=== PATIENT | female | born 1940 | race American Indian/Alaskan Native ===

== ENCOUNTER 2018-08-08 15:53 | Observation (INO) | payer MEDICARE, MEDICAID ==
[2018-08-08 15:53] VITALS: BMI 28.3
[2018-08-08 16:56] LABS: BASO % 0.7 % (0.0-2.0); EOS # 0.1 K/uL (0.0-0.7); EOS % 2.9 % (0.0-4.0); HEMOGLOBIN 12.4 g/dL (11.0-16.0); LYMPH # 1.7 K/uL (1.0-4.3); LYMPH % 32.4 % (20.0-40.0); MEAN CELL VOLUME 95.3 fL (81.0-99.0); MEAN CORPUSCULAR HEMOGLOBIN 32.1 pg (27.0-31.0); MEAN CORPUSCULAR HGB CONC 33.7 g/dL (33.0-37.0); MEAN PLATELET VOLUME 7.5 fL (7.2-11.7); MONO # 0.4 K/uL (0.0-0.8); MONO % 7.9 % (0.0-10.0); NEUT # 2.9 K/uL (1.8-7.0); NEUT % 56.1 % (50.0-75.0); NRBC % 0.1 % (0.0-2.0); RBC 3.86 Mil/uL (3.80-5.20); RED CELL DISTRIBUTION WIDTH 13.4 % (11.5-14.5); WHITE BLOOD COUNT 5.2 K/uL (4.8-10.8)
--- NOTE | 2018-08-08 17:09 | C.PDOC ---
History Of Present Illness 77-year-old female, is sent to the emergency department with complaints of chest pain. Patient has a Hx of cardiac disease, and was catheterized in May and June. Patient states he was watching television at 07:00 today and developed a sharp mid sternal chest pain. Patient notes associated diaphoresis that lasted a few minutes and resolved. Patient was seen in the office by Dr Rincon and sent to the ED for cardiac observation for new onset angina. Time Seen by Provider: 08/08/18 16:26 Chief Complaint (Nursing): Chest Pain History Per: Patient History/Exam Limitations: no limitations Current Symptoms Are (Timing): Still Present Severity: Moderate Past Medical History Reviewed: Historical Data, Nursing Documentation, Vital Signs Vital Signs: Last Vital Signs Temp 98.8 F 08/08/18 16:20 Pulse 66 08/08/18 16:20 Resp 20 08/08/18 16:20 BP 201/79 H 08/08/18 16:20 Pulse Ox 95 08/08/18 16:20 - Medical History PMH: Asthma, CAD, Diabetes, HTN, Hypercholesterolemia, Hyperthyroidism, Hypothyroidism, Pneumonia Surgical History: Coronary Stent Denies: Pacemaker - [facility] Procedures BATHING/SHOWERING TECHNIQUES TREATMENT (12/16/17) DRESSING TECHNIQUES TREATMENT (12/16/17) GAIT TRAINING/FUNCTIONAL AMBULATION TREATMENT (12/16/17) GROOMING/PERSONAL HYGIENE TREATMENT (12/16/17) INJECT/INFUSE ELECTROLYT (08/05/15) INJECT/INFUSE NEC (08/05/15) NEBULIZER THERAPY (02/27/15) THERAPEUTIC EXERCISE TREATMENT OF MUSCULOSK WHOLE (12/16/17) VITAL CAPACITY DETERMIN (02/27/15) Family History: States: No Known Family Hx - Social History Hx Tobacco Use: No Hx Alcohol Use: No Hx Substance Use: No - Immunization History Hx Tetanus Toxoid Vaccination: No Hx Influenza Vaccination: No Hx Pneumococcal Vaccination: No Review Of Systems Constitutional: Positive for: Sweats Cardiovascular: Positive for: Chest Pain. Negative for: Edema, Light Headedness Respiratory: Negative for: Cough Gastrointestinal: Negative for: Nausea, Vomiting, Abdominal Pain Musculoskeletal: Negative for: Arm Pain Physical Exam - Physical Exam Appears: Non-toxic, No Acute Distress Skin: Warm, Dry, No Rash Head: Atraumatic, Normacephalic Eye(s): bilateral: Normal Inspection Nose: Normal Oral Mucosa: Moist Lips: Normal Appearing Neck: Normal ROM Chest: Symmetrical Cardiovascular: Rhythm Regular, No Murmur Respiratory: Normal Breath Sounds, No Accessory Muscle Use Gastrointestinal/Abdominal: Soft, No Tenderness Extremity: Normal ROM, No Deformity Neurological/Psych: Oriented x3, Normal Speech ED Course And Treatment - Laboratory Results Result Diagrams: 08/08/18 16:45 08/08/18 17:05 Lab Interpretation: No Acute Changes ECG: Interpreted By Me ECG Rhythm: Sinus Rhythm (with LVH) ECG Interpretation: No Acute Changes O2 Sat by Pulse Oximetry: 95 Pulse Ox Interpretation: Normal (RA) - Radiology CXR: Interpreted by Me CXR Interpretation: Yes: No Acute Disease - Physician Consult Information Time Consulting Physician Contacted: 17:47 Physician Contacted: Roberto Cao Outcome Of Conversation: Patient to be kept on Tele for cardiac observation Medical Decision Making Medical Decision Making: Plan: * Bloodwork * EKG * Chest X-Ray * Reassess and Disposition Disposition - Disposition Disposition: HOSPITALIZED Disposition Time: 17:48 Condition: STABLE - POA Present On Arrival: None - Clinical Impression Clinical Impression: Chest pain - Scribe Statement The provider has reviewed the documentation as recorded by the Scribe (Oleksandr Young) Provider Attestation: All medical record entries made by the Scribe were at my direction and personally dictated by me. I have reviewed the chart and agree that the record accurately reflects my personal performance of the history, physical exam, medical decision making, and the department course for this patient. I have also personally directed, reviewed, and agree with the discharge instructions and disposition.
--- NOTE | 2018-08-08 17:10 | RAD ---
Date of service: 08/08/2018 PROCEDURE: CHEST RADIOGRAPH, 1 VIEW HISTORY: chest pain COMPARISON: Chest radiograph dated 10/13/2014. FINDINGS: LUNGS: Clear. PLEURA: No pneumothorax or pleural fluid seen. CARDIOVASCULAR: Atherosclerotic aortic calcifications. Cardiomediastinal silhouette stably enlarged. OSSEOUS STRUCTURES: Unchanged. VISUALIZED UPPER ABDOMEN: Normal. OTHER FINDINGS: None. IMPRESSION: No active disease.
[2018-08-08 17:24] LABS: ALB/GLOB RATIO 1.2 (1.0-2.1); ALBUMIN 4.1 g/dL (3.5-5.0); ALT/SGPT 25 U/L (9-52); AST/SGOT 23 U/L (14-36); BLOOD UREA NITROGEN 14 mg/dL (7-17); CALCIUM 9.4 mg/dl (8.6-10.4); GFR NON-AFRICAN AMERICAN 53
[2018-08-08 19:53] VITALS: RESP 20
[2018-08-08] MEDS ORDERED: Glucagon Recombinant 1 mg Inj IM PRN (20:32)
[2018-08-08] MEDS ORDERED: Dextrose 50% SYRINGE Inj (50 ml) IV PRN (20:32)
--- NOTE | 2018-08-08 21:15 | CP.PCM.HP ---
<Emperatriz Ackerman P - Last Filed: 08/08/18 22:00> History of Present Illness - History of Present Illness History of Present Illness: H&P for Hospitalist Service. CC: Chest pain HPI: Patient is a 77 yo F with PMHx of CAD, HTN, DM, Hypercholesterolemia, previous [place] (1979), previous CVA (1994), and cardiac catheterization with stent placement (05/2018 & 06/2018) who presents to ED for episodic chest pain that began today. Pain is described as sharp, non-radiating, and is located in the L chest. The first episode occurred when getting up from bed at 7am and lasted a few seconds. 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 States this has never happened before. Both episodes are associated with diaphoresis, palpitations, and nausea. Patient denies shortness of breath, cough, vomiting, radiation to neck or arm, dizziness, lightheadedness, orthopnea, abdominal pain, recent travel and recent illness. PMHx: CAD, HTN, DM, Hypercholesterolemia, hypothyroidism, asthma, previous [place] (1979), previous CVA (1994), and cardiac catheterization with stent placement (05/2018 & 06/2018) PSHx: R breast cyst removal (2002), (1979), hemorrhoidectomy Meds: Clopedogrel 75mg daily, ASA 81 mg daily, Metoprolol Tartrate 25 BID, Ranexa 500mg BID, levothyroxine 125 mcg daily, Simvastatin 10mg HS, Losartan 50mg Daily, Januvia Allergies: NKDA Social: Denies tobacco, alcohol, drugs. Family Hx: father-CVA, at age 48; brother- at age 11, cardiomyopathy; mother-colon cancer Proxy: Son- Kendall Hernandez [phone] Code Status: Full Code PMD: Dr. Omega Baig; Cardio: Dr. Rincon Present on Admission - Present on Admission Any Indicators Present on Admission: No Review of Systems - Constitutional Constitutional: absent: Chills, Fever, Headache, Night Sweats, Weakness - EENT Eyes: absent: Blurred Vision - Cardiovascular Cardiovascular: Chest Pain, Diaphoresis, Palpitations, Pedal Edema. absent: Dyspnea on Exertion, Lightheadedness - Respiratory Respiratory: absent: Cough, Dyspnea, Dyspnea on Exertion - Gastrointestinal Gastrointestinal: Constipation, Nausea. absent: Abdominal Pain, Diarrhea, Vomiting - Musculoskeletal Musculoskeletal: absent: Arthralgias, Joint Swelling, Numbness, Stiffness - Neurological Neurological: absent: Abnormal Speech, Confusion, Dizziness, Numbness, Headaches, Loss of Vision, Tingling Past Patient History - Infectious Disease Hx of Infectious Diseases: None - Tetanus Immunizations Tetanus Immunization: Unknown - Past Social History Smoking Status: Never Smoked - CARDIAC Hx Hypercholesterolemia: Yes Hx Hypertension: Yes Hx Pacemaker: No - PULMONARY Hx Asthma: Yes Hx Pneumonia: Yes - NEUROLOGICAL Hx Paralysis: No - HEENT Hx HEENT Problems: No - RENAL Hx Dialysis: No - ENDOCRINE/METABOLIC Hx Hyperthyroidism: Yes Hx Hypothyroidism: Yes - HEMATOLOGICAL/ONCOLOGICAL Hx Blood Transfusions: No - INTEGUMENTARY Hx Dermatological Problems: Yes Other/Comment: bilateral leg edema +2 more to right than left - MUSCULOSKELETAL/RHEUMATOLOGICAL Hx Musculoskeletal Disorders: No - GASTROINTESTINAL Hx Gastrointestinal Disorders: No - GENITOURINARY/GYNECOLOGICAL Hx Genitourinary Disorders: No Hx Reproductive Disorders: No - PSYCHIATRIC Hx Substance Use: No - SURGICAL HISTORY Hx Coronary Stent: Yes - ANESTHESIA Hx Anesthesia Reactions: No Hx Malignant Hyperthermia: No Meds Allergies/Adverse Reactions: Allergies Allergy/AdvReac Type Severity Reaction Status Date / Time No Known Allergies Allergy Verified 12/14/17 16:47 Physical Exam - Constitutional Appears: Non-toxic, No Acute Distress - Head Exam Head Exam: ATRAUMATIC, NORMOCEPHALIC - Eye Exam Eye Exam: EOMI, PERRL - ENT Exam ENT Exam: Mucous Membranes Moist - Neck Exam Neck exam: Positive for: Full Rom, Normal Inspection - Respiratory Exam Respiratory Exam: Clear to Auscultation Bilateral. absent: Rales, Rhonchi, Wheezes - Cardiovascular Exam Cardiovascular Exam: REGULAR RHYTHM, +S1, +S2 - GI/Abdominal Exam GI & Abdominal Exam: Normal Bowel Sounds, Soft. absent: Guarding, Rebound, Tenderness - Extremities Exam Extremities exam: Positive for: full ROM, normal capillary refill, pedal edema (trace bilaterally), pedal pulses present. Negative for: calf tenderness - Neurological Exam Neurological exam: Alert, CN II-XII Intact, Oriented x3 - Psychiatric Exam Psychiatric exam: Normal Affect, Normal Mood - Skin Skin Exam: Dry, Intact, Normal Color, Warm Results - Vital Signs Recent Vital Signs: Last Vital Signs Temp 98.1 F 08/08/18 19:40 Pulse 63 08/08/18 19:40 Resp 20 08/08/18 19:40 BP 171/77 H 08/08/18 19:40 Pulse Ox 97 08/08/18 19:40 - Labs Result Diagrams: 08/08/18 16:45 08/08/18 17:05 Labs: Laboratory Results - last 24 hr 08/08/18 08/08/18 16:45 17:05 WBC 5.2 RBC 3.86 Hgb 12.4 Hct 36.7 MCV 95.3 MCH 32.1 H MCHC 33.7 RDW 13.4 Plt Count 246 MPV 7.5 Neut % (Auto) 56.1 Lymph % (Auto) 32.4 [place] % (Auto) 7.9 Eos % (Auto) 2.9 Baso % (Auto) 0.7 Neut # (Auto) 2.9 Lymph # (Auto) 1.7 [place] # (Auto) 0.4 Eos # (Auto) 0.1 Baso # (Auto) 0.0 Sodium 140 Potassium 3.8 Chloride 104 Carbon Dioxide 24 Anion Gap 16 BUN 14 Creatinine 1.0 Est GFR ( Amer) > 60 Est GFR (Non-Af Amer) 53 Random Glucose 135 H Calcium 9.4 Total Bilirubin 0.6 AST 23 ALT 25 Alkaline Phosphatase 69 Troponin I < 0.0120 Total Protein 7.5 Albumin 4.1 Globulin 3.4 Albumin/Globulin Ratio 1.2 Assessment & Plan - Assessment and Plan (Free Text) Plan: 77 yo F with PMHx of CAD, HTN, DM, Hypercholesterolemia, previous [place] (1979), previous CVA (1994), and cardiac catheterization with stent placement (05/2018 & 06/2018) admitted for chest pain. Chest pain r/o ACS -Risk factors: HTN, DM, Hypercholesterolemia -Troponin x1 neg, follow up repeat -EKG on admission NSR at 63 bpm -F/u repeat EKG -CXR: No active dz -ASA 81mg -Continue Ranexa 500mg BID HTN -Metoprolol Tartrate 25mg BID -Losartan 50mg daily DM -Regular ISS -Glucose checks ACHS -Hypoglycemia protocol -Hgb A1c Hypercholesterolemia -Crestor 5 PO HS -Lipid panel Hx CAD with cardiac stent -Continue home med Plavix 75mg daily Hypothyroidism -Levothyroxine 125 mcg daily -TSH, Free T4 Prophylaxis -Pepcid 40mg daily -Lovenox 40mg daily -SCDs -Heart Healthy Diet <Roberto Cao - Last Filed: 08/09/18 10:28> Results - Vital Signs Recent Vital Signs: Last Vital Signs Temp 97.9 F 08/09/18 08:28 Pulse 57 L 08/09/18 08:28 Resp 20 08/09/18 08:28 BP 152/79 H 08/09/18 08:28 Pulse Ox 98 08/09/18 08:28 - Labs Result Diagrams: 08/09/18 06:23 08/09/18 06:23 Labs: Laboratory Results - last 24 hr 08/08/18 08/08/18 08/08/18 16:45 17:05 21:14 WBC 5.2 RBC 3.86 Hgb 12.4 Hct 36.7 MCV 95.3 MCH 32.1 H MCHC 33.7 RDW 13.4 Plt Count 246 MPV 7.5 Neut % (Auto) 56.1 Lymph % (Auto) 32.4 [place] % (Auto) 7.9 Eos % (Auto) 2.9 Baso % (Auto) 0.7 Neut # (Auto) 2.9 Lymph # (Auto) 1.7 [place] # (Auto) 0.4 Eos # (Auto) 0.1 Baso # (Auto) 0.0 Sodium 140 Potassium 3.8 Chloride 104 Carbon Dioxide 24 Anion Gap 16 BUN 14 Creatinine 1.0 Est GFR ( Amer) > 60 Est GFR (Non-Af Amer) 53 POC Glucose (mg/dL) 156 H Random Glucose 135 H Hemoglobin A1c Calcium 9.4 Phosphorus Magnesium Total Bilirubin 0.6 AST 23 ALT 25 Alkaline Phosphatase 69 Total Creatine Kinase CK-MB (Mass) Troponin I < 0.0120 Total Protein 7.5 Albumin 4.1 Globulin 3.4 Albumin/Globulin Ratio 1.2 Triglycerides Cholesterol LDL Cholesterol Direct HDL Cholesterol Free T4 TSH 3rd Generation 08/08/18 08/09/18 08/09/18 23:27 06:23 06:23 WBC 4.3 L RBC 3.50 L Hgb 11.5 Hct 33.0 L MCV 94.4 MCH 32.9 H MCHC 34.9 RDW 13.1 Plt Count 221 MPV 7.0 L Neut % (Auto) 57.6 Lymph % (Auto) 28.4 [place] % (Auto) 9.5 Eos % (Auto) 4.1 H Baso % (Auto) 0.4 Neut # (Auto) 2.5 Lymph # (Auto) 1.2 [place] # (Auto) 0.4 Eos # (Auto) 0.2 Baso # (Auto) 0.0 Sodium 140 Potassium 4.2 Chloride 107 Carbon Dioxide 24 Anion Gap 13 BUN 16 Creatinine 1.0 Est GFR ( Amer) > 60 Est GFR (Non-Af Amer) 53 POC Glucose (mg/dL) Random Glucose 148 H Hemoglobin A1c Calcium 9.4 Phosphorus 4.1 Magnesium 1.7 Total Bilirubin 0.5 AST 24 ALT 28 Alkaline Phosphatase 68 Total Creatine Kinase 86 81 CK-MB (Mass) 0.39 0.34 Troponin I < 0.0120 < 0.0120 Total Protein 6.9 Albumin 3.8 Globulin 3.1 Albumin/Globulin Ratio 1.2 Triglycerides 137 Cholesterol 205 H LDL Cholesterol Direct 104 HDL Cholesterol 48 Free T4 TSH 3rd Generation < 0.02 L 08/09/18 08/09/18 08/09/18 06:23 06:23 06:33 WBC RBC Hgb Hct MCV MCH MCHC RDW Plt Count MPV Neut % (Auto) Lymph % (Auto) [place] % (Auto) Eos % (Auto) Baso % (Auto) Neut # (Auto) Lymph # (Auto) [place] # (Auto) Eos # (Auto) Baso # (Auto) Sodium Potassium Chloride Carbon Dioxide Anion Gap BUN Creatinine Est GFR ( Amer) Est GFR (Non-Af Amer) POC Glucose (mg/dL) 143 H Random Glucose Hemoglobin A1c 6.7 H Calcium Phosphorus Magnesium Total Bilirubin AST ALT Alkaline Phosphatase Total Creatine Kinase CK-MB (Mass) Troponin I Total Protein Albumin Globulin Albumin/Globulin Ratio Triglycerides Cholesterol LDL Cholesterol Direct HDL Cholesterol Free T4 1.42 TSH 3rd Generation Attending/Attestation - Attestation I have personally seen and examined this patient.: Yes I have fully participated in the care of the patient.: Yes I have reviewed all pertinent clinical information: Yes Notes (Text): Seen and examined by me with the resident in the ER. History taken from the patient. patinet came for chest pain and diaphoresis. High risk for Acute CAD. sitting comfortable,no pain,lungs clear, regular Rhythm EKG without ischemic changes,michael troponin ok admit to [facility] for observation,3 sets troponin,cardiology consult DR Rincon Start her home meds Renexa,asprin,plvix,cozaar,crestor and metoprolol I agree with the resident's documentation
[2018-08-08] MEDS: (Novolin R) Insulin Human Regular 100 units/ml vial SC SCH (21:42)
--- NOTE | 2018-08-08 22:12 | CP.PCM.CON ---
History of Present Illness - History of Present Illness History of Present Illness: 77 F with hx of CAD and stents presented to ER with episode of chest pain Trop x 1 negative Stress test in am Past Patient History - Infectious Disease Hx of Infectious Diseases: None - Tetanus Immunizations Tetanus Immunization: Unknown - Past Social History Smoking Status: Never Smoked - CARDIAC Hx Hypercholesterolemia: Yes Hx Hypertension: Yes Hx Pacemaker: No - PULMONARY Hx Asthma: Yes Hx Pneumonia: Yes - NEUROLOGICAL Hx Paralysis: No - HEENT Hx HEENT Problems: No - RENAL Hx Dialysis: No - ENDOCRINE/METABOLIC Hx Hyperthyroidism: Yes Hx Hypothyroidism: Yes - HEMATOLOGICAL/ONCOLOGICAL Hx Blood Transfusions: No - INTEGUMENTARY Hx Dermatological Problems: Yes Other/Comment: bilateral leg edema +2 more to right than left - MUSCULOSKELETAL/RHEUMATOLOGICAL Hx Musculoskeletal Disorders: No - GASTROINTESTINAL Hx Gastrointestinal Disorders: No - GENITOURINARY/GYNECOLOGICAL Hx Genitourinary Disorders: No Hx Reproductive Disorders: No - PSYCHIATRIC Hx Substance Use: No - SURGICAL HISTORY Hx Coronary Stent: Yes - ANESTHESIA Hx Anesthesia Reactions: No Hx Malignant Hyperthermia: No Meds Allergies/Adverse Reactions: Allergies Allergy/AdvReac Type Severity Reaction Status Date / Time No Known Allergies Allergy Verified 12/14/17 16:47 - Medications Medications: Current Medications Aspirin (Aspirin Chewable) 81 mg PO DAILY [facility] Clopidogrel Bisulfate (Plavix) 75 mg PO DAILY [facility] Dextrose (Dextrose 50% Inj) 0 ml IV STAT PRN; Protocol PRN Reason: Hypoglycemia Protocol Dextrose (Glutose 15) 0 gm PO ONCE PRN; Protocol PRN Reason: Hypoglycemia Protocol Enoxaparin Sodium (Lovenox) 40 mg SC DAILY [facility] Famotidine (Pepcid) 40 mg PO DAILY [facility] Glucagon (Glucagen Diagnostic Kit) 0 mg IM STAT PRN; Protocol PRN Reason: Hypoglycemia Protocol Dextrose (Dextrose 5% In Water 1000 Ml) 1,000 mls @ 0 mls/hr IV .Q0M PRN; Protocol PRN Reason: Hypoglycemia Protocol Insulin Human Regular (Novolin R) 0 unit SC ACHS [facility]; Protocol Last Admin: 08/08/18 21:42 Dose: Not Given Levothyroxine Sodium (Synthroid) 125 mcg PO DAILY@0630 [facility] Losartan Potassium (Cozaar) 50 mg PO DAILY [facility] Metoprolol Tartrate (Lopressor) 25 mg PO BID [facility] Ranolazine (Ranexa) 500 mg PO BID [facility] Rosuvastatin Calcium (Crestor) 5 mg PO HS [facility] Last Admin: 08/08/18 21:51 Dose: 5 mg Results - Vital Signs Recent Vital Signs: Last Vital Signs Temp 98.1 F 08/08/18 19:40 Pulse 63 08/08/18 19:40 Resp 20 08/08/18 19:40 BP 171/77 H 08/08/18 19:40 Pulse Ox 97 08/08/18 19:40 - Labs Result Diagrams: 08/08/18 16:45 08/08/18 17:05 Labs: Laboratory Results - last 24 hr 08/08/18 08/08/18 08/08/18 16:45 17:05 21:14 WBC 5.2 RBC 3.86 Hgb 12.4 Hct 36.7 MCV 95.3 MCH 32.1 H MCHC 33.7 RDW 13.4 Plt Count 246 MPV 7.5 Neut % (Auto) 56.1 Lymph % (Auto) 32.4 [place] % (Auto) 7.9 Eos % (Auto) 2.9 Baso % (Auto) 0.7 Neut # (Auto) 2.9 Lymph # (Auto) 1.7 [place] # (Auto) 0.4 Eos # (Auto) 0.1 Baso # (Auto) 0.0 Sodium 140 Potassium 3.8 Chloride 104 Carbon Dioxide 24 Anion Gap 16 BUN 14 Creatinine 1.0 Est GFR ( Amer) > 60 Est GFR (Non-Af Amer) 53 POC Glucose (mg/dL) 156 H Random Glucose 135 H Calcium 9.4 Total Bilirubin 0.6 AST 23 ALT 25 Alkaline Phosphatase 69 Troponin I < 0.0120 Total Protein 7.5 Albumin 4.1 Globulin 3.4 Albumin/Globulin Ratio 1.2
[2018-08-09] LABS: CK-MB 0.39 ng/mL (0.0-3.38)
[2018-08-09] MEDS: Levothyroxine 125 MCG TAB PO SCH (06:04)
[2018-08-09 06:30] LABS: BASO % 0.4 % (0.0-2.0); EOS # 0.2 K/uL (0.0-0.7); EOS % 4.1 % (0.0-4.0); HEMOGLOBIN 11.5 g/dL (11.0-16.0); LYMPH # 1.2 K/uL (1.0-4.3); LYMPH % 28.4 % (20.0-40.0); MEAN CELL VOLUME 94.4 fL (81.0-99.0); MEAN CORPUSCULAR HEMOGLOBIN 32.9 pg (27.0-31.0); MEAN CORPUSCULAR HGB CONC 34.9 g/dL (33.0-37.0); MONO # 0.4 K/uL (0.0-0.8); MONO % 9.5 % (0.0-10.0); NEUT # 2.5 K/uL (1.8-7.0); NEUT % 57.6 % (50.0-75.0); RBC 3.5 Mil/uL (3.80-5.20); RED CELL DISTRIBUTION WIDTH 13.1 % (11.5-14.5); WHITE BLOOD COUNT 4.3 K/uL (4.8-10.8)
[2018-08-09 06:47] LABS: ALB/GLOB RATIO 1.2 (1.0-2.1); ALBUMIN 3.8 g/dL (3.5-5.0); ALT/SGPT 28 U/L (9-52); AST/SGOT 24 U/L (14-36); BLOOD UREA NITROGEN 16 mg/dL (7-17); CALCIUM 9.4 mg/dl (8.6-10.4); GFR NON-AFRICAN AMERICAN 53; HDL CHOLESTEROL 48 mg/dL (30-70)
[2018-08-09 06:58] LABS: CK-MB 0.34 ng/mL (0.0-3.38); LDL CHOLESTEROL 104 mg/dL (0-129)
[2018-08-09] MEDS: (Novolin R) Insulin Human Regular 100 units/ml vial SC SCH ×4 (07:34→21:21)
[2018-08-09] MEDS ORDERED: Caffeine Citrated **INJ** 20 MG/ML IV ONE (07:36)
[2018-08-09] MEDS: Enoxaparin 40 mg Syringe SC SCH ×2 (09:36→10:33)
[2018-08-09] MEDS: Ranolazine 500 mg Extended Release Tablets PO SCH ×3 (09:37→17:48)
--- NOTE | 2018-08-09 17:15 | CP.PCM.PN ---
<Emperatriz Ackerman P - Last Filed: 08/09/18 17:46> Subjective - Date & Time of Evaluation Date of Evaluation: 08/09/18 Time of Evaluation: 07:00 - Subjective Subjective: PGY-[address] Cao. Patient was seen and evaluated at bedside. Patient states she awoke feeling well, however started to feel lightheaded following the nuclear stress test. Denies chest pain, shortness of breath, diaphoresis, fever and chills. Objective - Vital Signs/Intake and Output Vital Signs (last 24 hours): Temp Pulse Resp BP Pulse Ox 97.9 F 57 L 20 150/79 98 08/09/18 08:28 08/09/18 08:28 08/09/18 08:28 08/09/18 10:31 08/09/18 08:28 Intake and Output: 08/09/18 08/09/18 06:59 18:59 Intake Total 480 Balance 480 - Medications Medications: Current Medications Aspirin (Aspirin Chewable) 81 mg PO DAILY [facility] Last Admin: 08/09/18 10:32 Dose: 81 mg Clopidogrel Bisulfate (Plavix) 75 mg PO DAILY [facility] Last Admin: 08/09/18 10:30 Dose: 75 mg Dextrose (Dextrose 50% Inj) 0 ml IV STAT PRN; Protocol PRN Reason: Hypoglycemia Protocol Dextrose (Glutose 15) 0 gm PO ONCE PRN; Protocol PRN Reason: Hypoglycemia Protocol Enoxaparin Sodium (Lovenox) 40 mg SC DAILY [facility] Last Admin: 08/09/18 10:33 Dose: 40 mg Famotidine (Pepcid) 20 mg PO DAILY [facility] Last Admin: 08/09/18 10:31 Dose: 20 mg Glucagon (Glucagen Diagnostic Kit) 0 mg IM STAT PRN; Protocol PRN Reason: Hypoglycemia Protocol Dextrose (Dextrose 5% In Water 1000 Ml) 1,000 mls @ 0 mls/hr IV .Q0M PRN; Protocol PRN Reason: Hypoglycemia Protocol Insulin Human Regular (Novolin R) 0 unit SC [facility]; Protocol Last Admin: 08/09/18 12:53 Dose: 3 u Levothyroxine Sodium (Synthroid) 125 mcg PO DAILY@0630 [facility] Last Admin: 08/09/18 06:04 Dose: 125 mcg Losartan Potassium (Cozaar) 50 mg PO DAILY [facility] Last Admin: 08/09/18 10:30 Dose: 50 mg Metoprolol Tartrate (Lopressor) 25 mg PO BID [facility] Last Admin: 08/09/18 10:31 Dose: 25 mg Ranolazine (Ranexa) 500 mg PO BID [facility] Last Admin: 08/09/18 10:35 Dose: 500 mg Rosuvastatin Calcium (Crestor) 5 mg PO HS [facility] Last Admin: 08/08/18 21:51 Dose: 5 mg - Labs Labs: 08/09/18 06:23 08/09/18 06:23 - Additional Findings Additional findings: - Constitutional Appears: Non-toxic, No Acute Distress - Head Exam Head Exam: ATRAUMATIC, NORMOCEPHALIC - Eye Exam Eye Exam: EOMI, PERRL - ENT Exam ENT Exam: Mucous Membranes Moist - Neck Exam Neck exam: Positive for: Full Rom, Normal Inspection - Respiratory Exam Respiratory Exam: Clear to Auscultation Bilateral. absent: Rales, Rhonchi, W heezes - Cardiovascular Exam Cardiovascular Exam: REGULAR RHYTHM, +S1, +S2 - GI/Abdominal Exam GI & Abdominal Exam: Normal Bowel Sounds, Soft. absent: Guarding, Rebound, Tenderness - Extremities Exam Extremities exam: Positive for: full ROM, normal capillary refill, pedal edema (trace bilaterally L>R), pedal pulses present. Negative for: calf tenderness - Neurological Exam Neurological exam: Alert, CN II-XII Intact, Oriented x3 - Psychiatric Exam Psychiatric exam: Normal Affect, Normal Mood - Skin Skin Exam: Dry, Intact, Normal Color, Warm Assessment and Plan - Assessment and Plan (Free Text) Plan: 77 yo F with PMHx of CAD, HTN, DM, Hypercholesterolemia, previous CA (1979), previous CVA (1994), and cardiac catheterization with stent placement (05/2018 & 06/2018) admitted for chest pain. Chest pain r/o ACS -Risk factors: HTN, DM, Hypercholesterolemia -Troponin negative x3 -EKG x2: NSR with left axis deviation -CXR: No active dz -Lipid panel: T, LDL: 104, HDL:48 -TSH: 0.02, Free T4: 1.42 -Hgb A1c: 6.7 -ASA 81mg -Echo 12/2017: LVEF: 65%: LV is normal size, funtion is normal. LV wall motion and thickness are normal. Transmitral Doppler flow pattern is grade 1-abnormal relaxation pattern. Mitral regurgitation is mild. There is mild to moderate tricuspid regurgitation. There is mild to moderate pulmonary hypertension. -F/u Nuclear stress test HTN -Metoprolol Tartrate 25mg BID -Losartan 50mg daily DM -Regular ISS -Glucose checks ACHS -Hypoglycemia protocol Hypercholesterolemia -Crestor 5 PO HS Hx CAD with cardiac stent -Continue home med Plavix 75mg daily -Continue Ranexa 500mg BID Hypothyroidism -Levothyroxine 125 mcg daily -TSH: 0.02, Free T4: 1.42 Asthma -Albuterol INH PRN Prophylaxis -Pepcid 40mg daily -Lovenox 40mg daily -SCDs -Heart Healthy Diet <Roberto Cao - Last Filed: 08/09/18 17:58> Objective - Vital Signs/Intake and Output Vital Signs (last 24 hours): Temp Pulse Resp BP Pulse Ox 97.4 F L 60 20 132/66 99 08/09/18 15:19 08/09/18 15:19 08/09/18 15:19 08/09/18 17:45 08/09/18 15:19 Intake and Output: 08/09/18 08/09/18 06:59 18:59 Intake Total 480 Balance 480 - Medications Medications: Current Medications Albuterol (Ventolin Hfa 90 Mcg/Actuation (8 G)) 1 puff INH RQ4 PRN PRN Reason: Shortness of Breath Aspirin (Aspirin Chewable) 81 mg PO DAILY [facility] Last Admin: 08/09/18 10:32 Dose: 81 mg Clopidogrel Bisulfate (Plavix) 75 mg PO DAILY [facility] Last Admin: 08/09/18 10:30 Dose: 75 mg Dextrose (Dextrose 50% Inj) 0 ml IV STAT PRN; Protocol PRN Reason: Hypoglycemia Protocol Dextrose (Glutose 15) 0 gm PO ONCE PRN; Protocol PRN Reason: Hypoglycemia Protocol Enoxaparin Sodium (Lovenox) 40 mg SC DAILY [facility] Last Admin: 08/09/18 10:33 Dose: 40 mg Famotidine (Pepcid) 20 mg PO DAILY [facility] Last Admin: 08/09/18 10:31 Dose: 20 mg Glucagon (Glucagen Diagnostic Kit) 0 mg IM STAT PRN; Protocol PRN Reason: Hypoglycemia Protocol Dextrose (Dextrose 5% In Water 1000 Ml) 1,000 mls @ 0 mls/hr IV .Q0M PRN; Protocol PRN Reason: Hypoglycemia Protocol Insulin Human Regular (Novolin R) 0 unit SC [facility]; Protocol Last Admin: 08/09/18 17:00 Dose: Not Given Levothyroxine Sodium (Synthroid) 125 mcg PO DAILY@0630 [facility] Last Admin: 08/09/18 06:04 Dose: 125 mcg Losartan Potassium (Cozaar) 50 mg PO DAILY [facility] Last Admin: 08/09/18 10:30 Dose: 50 mg Metoprolol Tartrate (Lopressor) 25 mg PO BID [facility] Last Admin: 08/09/18 17:45 Dose: 25 mg Ranolazine (Ranexa) 500 mg PO BID [facility] Last Admin: 08/09/18 17:48 Dose: 500 mg Rosuvastatin Calcium (Crestor) 5 mg PO HS [facility] Last Admin: 08/08/18 21:51 Dose: 5 mg - Labs Labs: 08/09/18 06:23 08/09/18 06:23 Attending/Attestation - Attestation I have personally seen and examined this patient.: Yes I have fully participated in the care of the patient.: Yes I have reviewed all pertinent clinical information, including history, physical exam and plan: Yes Notes (Text): Seen and examined Patient is feeling not good after stress test. She think may be she was lying flat too long Stress test report pending we will follow up with Dr Rincon continue home meds,continue tele D/W resident and I agree with the documentation 08/09/18 17:55
[2018-08-09] MEDS ORDERED: Albuterol HFA 90 mcg/actuation (8 g) INH PRN (17:16)
--- NOTE | 2018-08-09 22:28 | CP.PCM.PN ---
Subjective - Date & Time of Evaluation Date of Evaluation: 08/09/18 Time of Evaluation: 16:30 - Subjective Subjective: Patient seen and evaluated Denies chest pain and dyspnea Normal stress test Normal EF CAD s/p stents Medical management Objective - Vital Signs/Intake and Output Vital Signs (last 24 hours): Temp Pulse Resp BP Pulse Ox 97.4 F L 63 20 132/66 99 08/09/18 15:19 08/09/18 16:00 08/09/18 15:19 08/09/18 17:45 08/09/18 15:19 Intake and Output: 08/09/18 08/10/18 18:59 06:59 Intake Total 480 Balance 480 - Medications Medications: Current Medications Albuterol (Ventolin Hfa 90 Mcg/Actuation (8 G)) 1 puff INH RQ4 PRN PRN Reason: Shortness of Breath Aspirin (Aspirin Chewable) 81 mg PO DAILY [facility] Last Admin: 08/09/18 10:32 Dose: 81 mg Clopidogrel Bisulfate (Plavix) 75 mg PO DAILY [facility] Last Admin: 08/09/18 10:30 Dose: 75 mg Dextrose (Dextrose 50% Inj) 0 ml IV STAT PRN; Protocol PRN Reason: Hypoglycemia Protocol Dextrose (Glutose 15) 0 gm PO ONCE PRN; Protocol PRN Reason: Hypoglycemia Protocol Enoxaparin Sodium (Lovenox) 40 mg SC DAILY [facility] Last Admin: 08/09/18 10:33 Dose: 40 mg Famotidine (Pepcid) 20 mg PO DAILY [facility] Last Admin: 08/09/18 10:31 Dose: 20 mg Glucagon (Glucagen Diagnostic Kit) 0 mg IM STAT PRN; Protocol PRN Reason: Hypoglycemia Protocol Dextrose (Dextrose 5% In Water 1000 Ml) 1,000 mls @ 0 mls/hr IV .Q0M PRN; Protocol PRN Reason: Hypoglycemia Protocol Insulin Human Regular (Novolin R) 0 unit SC [facility]; Protocol Last Admin: 08/09/18 21:21 Dose: Not Given Levothyroxine Sodium (Synthroid) 125 mcg PO DAILY@0630 [facility] Last Admin: 08/09/18 06:04 Dose: 125 mcg Losartan Potassium (Cozaar) 50 mg PO DAILY [facility] Last Admin: 08/09/18 10:30 Dose: 50 mg Metoprolol Tartrate (Lopressor) 25 mg PO BID [facility] Last Admin: 08/09/18 17:45 Dose: 25 mg Ranolazine (Ranexa) 500 mg PO BID [facility] Last Admin: 08/09/18 17:48 Dose: 500 mg Rosuvastatin Calcium (Crestor) 5 mg PO HS [facility] Last Admin: 08/09/18 21:40 Dose: 5 mg - Labs Labs: 08/09/18 06:23 08/09/18 06:23
[2018-08-10] MEDS: Levothyroxine 125 MCG TAB PO SCH (05:40)
--- NOTE | 2018-08-10 07:09 | CP.PCM.DIS ---
Provider - Provider Date of Admission: 08/08/18 17:48 Attending physician: Roberto Cao MD Primary care physician: Dr. Baig Consults: Dr. Rincon, cardiology Time Spent in preparation of Discharge (in minutes): 35 Diagnosis - Discharge Diagnosis (1) Chest pain Status: Acute Hospital Course - Lab Results Lab Results: Most Recent Lab Values WBC 4.3 K/uL (4.8-10.8) L 08/09/18 06:23 RBC 3.50 Mil/uL (3.80-5.20) L 08/09/18 06:23 Hgb 11.5 g/dL (11.0-16.0) 08/09/18 06:23 Hct 33.0 % (34.0-47.0) L 08/09/18 06:23 MCV 94.4 fL (81.0-99.0) 08/09/18 06:23 MCH 32.9 pg (27.0-31.0) H 08/09/18 06:23 MCHC 34.9 g/dL (33.0-37.0) 08/09/18 06:23 RDW 13.1 % (11.5-14.5) 08/09/18 06:23 Plt Count 221 K/uL (130-400) 08/09/18 06:23 MPV 7.0 fL (7.2-11.7) L 08/09/18 06:23 Neut % (Auto) 57.6 % (50.0-75.0) 08/09/18 06:23 Lymph % (Auto) 28.4 % (20.0-40.0) 08/09/18 06:23 Ralls % (Auto) 9.5 % (0.0-10.0) 08/09/18 06:23 Eos % (Auto) 4.1 % (0.0-4.0) H 08/09/18 06:23 Baso % (Auto) 0.4 % (0.0-2.0) 08/09/18 06:23 Neut # (Auto) 2.5 K/uL (1.8-7.0) 08/09/18 06:23 Lymph # (Auto) 1.2 K/uL (1.0-4.3) 08/09/18 06:23 Ralls # (Auto) 0.4 K/uL (0.0-0.8) 08/09/18 06:23 Eos # (Auto) 0.2 K/uL (0.0-0.7) 08/09/18 06:23 Baso # (Auto) 0.0 K/uL (0.0-0.2) 08/09/18 06:23 Sodium 140 mmol/L (132-148) 08/09/18 06:23 Potassium 4.2 mmol/L (3.6-5.2) 08/09/18 06:23 Chloride 107 mmol/L (98-107) 08/09/18 06:23 Carbon Dioxide 24 mmol/L (22-30) 08/09/18 06:23 Anion Gap 13 (10-20) 08/09/18 06:23 BUN 16 mg/dL (7-17) 08/09/18 06:23 Creatinine 1.0 mg/dL (0.7-1.2) 08/09/18 06:23 Est GFR ( Amer) > 60 08/09/18 06:23 Est GFR (Non-Af Amer) 53 08/09/18 06:23 POC Glucose (mg/dL) 144 mg/dL (65-110) H 08/10/18 06:32 Random Glucose 148 mg/dL (65-105) H 08/09/18 06:23 Hemoglobin A1c 6.7 % (4.2-6.5) H 08/09/18 06:23 Calcium 9.4 mg/dl (8.6-10.4) 08/09/18 06:23 Phosphorus 4.1 mg/dL (2.5-4.5) 08/09/18 06:23 Magnesium 1.7 mg/dL (1.6-2.3) 08/09/18 06:23 Total Bilirubin 0.5 mg/dL (0.2-1.3) 08/09/18 06:23 AST 24 U/L (14-36) 08/09/18 06:23 ALT 28 U/L (9-52) 08/09/18 06:23 Alkaline Phosphatase 68 U/L (38-126) 08/09/18 06:23 Total Creatine Kinase 81 U/L (30-135) 08/09/18 06:23 CK-MB (Mass) 0.34 ng/mL (0.0-3.38) 08/09/18 06:23 Troponin I < 0.0120 ng/mL (0.00-0.120) 08/09/18 06:23 Total Protein 6.9 g/dL (6.3-8.3) 08/09/18 06:23 Albumin 3.8 g/dL (3.5-5.0) 08/09/18 06:23 Globulin 3.1 gm/dL (2.2-3.9) 08/09/18 06:23 Albumin/Globulin Ratio 1.2 (1.0-2.1) 08/09/18 06:23 Triglycerides 137 mg/dL (0-149) 08/09/18 06:23 Cholesterol 205 mg/dL (0-199) H 08/09/18 06:23 LDL Cholesterol Direct 104 mg/dL (0-129) 08/09/18 06:23 HDL Cholesterol 48 mg/dL (30-70) 08/09/18 06:23 Free T4 1.42 ng/dL (0.78-2.19) 08/09/18 06:23 TSH 3rd Generation < 0.02 mIU/L (0.46-4.68) L 08/09/18 06:23 - Hospital Course Hospital Course: On Admission: CC: Chest pain HPI: Patient is a 77 yo F with PMHx of CAD, HTN, DM, Hypercholesterolemia, previous [place] (1979), previous CVA (1994), and cardiac catheterization with stent placement (05/2018 & 06/2018) who presents to ED for episodic chest pain that began today. Pain is described as sharp, non-radiating, and is located in the L chest. The first episode occurred when getting up from bed at 7am and lasted a few seconds. 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 States this has never happened before. Both episodes are associated with diaphoresis, palpitations, and nausea. Patient denies shortness of breath, cough, vomiting, radiation to neck or arm, d izziness, lightheadedness, orthopnea, abdominal pain, recent travel and recent illness. Hospital Course: Patient was admitted to evaluate chest pain and rule out acute coronary syndrome. Dr. Rincon, cardiology, was consulted. Patient's troponins were negative x3. EKG's showed normal sinus rhythm with L axis deviation, otherwise normal. CXR showed no active disease. Patient had a nuclear stress test, which was normal with normal ejection fraction as per Dr. Rincon. Patient remained chest pain fee during hospitalization and feels better. Patient is stable for discharge. Discharge Instructions: Patient is stable for discharge as per Dr. Cao and Dr. Rincon. Patient is to follow up with her primary care doctor and Dr. Rincon within one week of discharge. Patient is to resume her home medications. Patient is to return to ED if new or worsening symptoms occur. Discharge Exam - Head Exam Head Exam: ATRAUMATIC, NORMOCEPHALIC - Eye Exam Eye Exam: EOMI, PERRL - ENT Exam ENT Exam: Mucous Membranes Moist - Neck Exam Neck exam: Full Rom, Normal Inspection - Respiratory Exam Respiratory Exam: Clear to PA & Lateral, NORMAL BREATHING PATTERN. absent: Rales, Rhonchi, Wheezes - Cardiovascular Exam Cardiovascular Exam: REGULAR RHYTHM, +S1, +S2 - GI/Abdominal Exam GI & Abdominal Exam: Normal Bowel Sounds, Soft. absent: Tenderness - Extremities Exam Extremities exam: full ROM Additional comments: trace lower extremity edema bilaterally. - Neurological Exam Neurological exam: Alert, Oriented x3 - Psychiatric Exam Psychiatric exam: Normal Affect, Normal Mood - Skin Skin Exam: Dry, Intact, Normal Color, Warm Discharge Plan - Follow Up Plan Condition: STABLE Disposition: HOME/ ROUTINE Instructions: Heart Healthy Diet, Chest Pain Additional Instructions: Patient is stable for discharge as per Dr. Cao and Dr. Rincon. Patient is to follow up with her primary care doctor and Dr. Rincon within one week of discharge. Patient is to resume her home medications. Patient is to return to ED if new or worsening symptoms occur. Referrals: Michoacano Rincon MD [Staff Provider] -
[2018-08-10] MEDS: (Novolin R) Insulin Human Regular 100 units/ml vial SC SCH (07:40)
[2018-08-10 08:05] LABS: BASO % 0.4 % (0.0-2.0); EOS # 0.2 K/uL (0.0-0.7); EOS % 3.5 % (0.0-4.0); HEMOGLOBIN 11.9 g/dL (11.0-16.0); LYMPH # 1.3 K/uL (1.0-4.3); MEAN CELL VOLUME 94.9 fL (81.0-99.0); MEAN CORPUSCULAR HEMOGLOBIN 32.7 pg (27.0-31.0); MEAN CORPUSCULAR HGB CONC 34.4 g/dL (33.0-37.0); MEAN PLATELET VOLUME 7.6 fL (7.2-11.7); MONO # 0.4 K/uL (0.0-0.8); MONO % 9.2 % (0.0-10.0); NEUT # 2.8 K/uL (1.8-7.0); NEUT % 58.9 % (50.0-75.0); NRBC % 0.1 % (0.0-2.0); RBC 3.64 Mil/uL (3.80-5.20); RED CELL DISTRIBUTION WIDTH 13.2 % (11.5-14.5); WHITE BLOOD COUNT 4.8 K/uL (4.8-10.8)
[2018-08-10 08:25] LABS: ALB/GLOB RATIO 1.2 (1.0-2.1); ALBUMIN 3.8 g/dL (3.5-5.0); CALCIUM 9.5 mg/dl (8.6-10.4)
[2018-08-10 08:33] VITALS: PULSE 71; TEMP 98.5; O2SAT 98
[2018-08-10] MEDS: Enoxaparin 40 mg Syringe SC SCH (12:13)
[2018-08-10 12:15] VITALS: BP 180/84
--- NOTE | 2018-08-11 15:17 | CARD ---
APPROVED REPORT Date of service: 08/08/2018 EKG Measurement Heart [id number] <Conclusion> Normal sinus rhythm Moderate voltage criteria for LVH, may be normal variant Borderline ECG
--- NOTE | 2018-08-11 15:17 | CARD ---
APPROVED REPORT Date of service: 08/09/2018 EKG Measurement Heart [id number] PA [id number] <Conclusion> Normal sinus rhythm Minimal voltage criteria for LVH, may be normal variant Borderline ECG
--- NOTE | 2018-08-11 19:35 | CARD ---
APPROVED REPORT Date of service: 08/09/2018 Protocol: LEXISCAN Test Type: LEXISCAN STRESS Test Indications: CHEST PAIN Medications: LIST Target HR: 141 bpm Resting ECG: NSR Resting Heart Rate: 64 bpm Resting Blood Pressure: 134/80mmHg submaximum (85%): 120 bpm TEST SUMMARY [id number]:01..1.062/.0. PREINFSNHYPERV.04:[id number]/80.0. INFUSIONDOSE 100:300.00.01.063/.0. [id number]:[id number]/80.0. PROCEDURE Pharmacologic stress testing was performed using 0.4mg per 5ml of regadenoson given intravenously over 7-10 seconds. POST EXERCISE Reason for Termination: Protocol Completed Target HR: No Max HR: 63 bpm 83% of Maximum Predicted HR: 141 bpm Exercise duration: 00:30 min:sec, 0 Stage Exercise capacity: 1.0METs Max Blood Pressure: 140/80mmHg Blood Pressure response to exercise: normal resting BP - appropriate response Heart Rate response to exercise: appropriate Chest Pain: No, none Angina index: 0 Arrhythmia: No, none ST Change: Yes, NS ST T CHANGES Deviation: 0 mm INTERPRETATION Stress EKG Conclusion: NEGATIVE LEXISCAN STRESS TEST NORMAL BP RESPONSE TO LEXISCAN NUCLEAR STUDIES TO BE READ SEPARATELY EXAM: Myocardial Perfusion STRESS/REST Imaging Protocol The imaging protocol used to acquire images was Stress Tc-99m/rest Tc-99m 1 day Stress Spect myocardial perfusion imaging was performed in supine position 40 minutes following the injection of 13 mCi of Tc-99 Myoview. Gated Rest Spect was performed 40 minutes after intravenous 32.1 mCi Tc-99 Myoview injection. The images were gated to evaluate regional wall motion and calculate ventricular ejection fraction.Images were reconstructed using backfilter projection method in short horizontal and verticle long axis. Spect slices were generated. RESTING DATA EDV54.16fgFV9.50L/min1/3 Pk. Filling Rate1.46EDV/sec LV Time to Pk. Filling Lele180.10msec ESV15.00mlMyocardial Rrxo276.00gLV Time to Pk. Ejection Sfjr517.32msec Pk. Fill Rate2.24EDV/secAv. Heart Rate65.00bpm EF72.00%Pk. Emptying Rate4.31ESV/sec STRESS DATA EDV51.49wbNJ0.40L/min ESV17.00mlMyocardial Mass97.00g Pk. Fill Rate2.45EDV/sec EF67.00%Pk. Emptying Rate3.84ESV/sec 1/3 Pk. Filling Rate0.95EDV/secRegional WT score at stress:0.00 LV Time to Pk. Filling Rate:233.32msecRegional WM score at stress:0.00 LV Time to Pk. Ejection Rate:159.11msecSummed WT score at stress:4.00 Av. Heart Rate69.00bpmSummed WM score at stress:0.00 LV Perf. Quant 17 Seg. SSS0.00 17 Seg. SRS2.00 17 Seg. SDS0.00 Stress Defect Extent (% LAD)0.00Rest Defect Extent (% LAD)0.00Rev. Defect Extent (% LAD)0.00 Stress Defect Extent (% LCX)0.00Rest Defect Extent (% LCX)0.00Rev. Defect Extent (% LCX)0.00 Stress Defect Extent (% RCA)0.00Rest Defect Extent (% RCA)0.00Rev. Defect Extent (% RCA)0.00 Stress Defect Extent (% EMMETT)0.00Rest Defect Extent (% EMMETT)0.00Rev. Defect Extent (% EMMETT)0.00 Other Information Quality:Good IMPRESSION Normal Myocardial Perfusion exercise stress study Left Ventricle LV Function:Left ventricle systolic function is normal. The Ejection Fraction is >55%. Conclusion 1. Normal Lexiscan Nuclear Stress Test. Normal EF.
== END 2018-08-10 13:49 | disposition home or self-care (01) ==
LOC: C.ER 15:53 → C.9E 17:48 → C.6T 18:21
PROVIDERS: ADMIT Internal Medicine; ATTEND Internal Medicine
DX: R07.9 Chest pain, unspecified (principal); I25.10 Atherosclerotic heart disease of native coronary artery without angina pectoris; I10 Essential (primary) hypertension; E11.9 Type 2 diabetes mellitus without complications; E78.00 Pure hypercholesterolemia, unspecified; I25.2 Old myocardial infarction; Z86.73 Personal history of transient ischemic attack (TIA), and cerebral infarction without residual deficits; Z95.5 Presence of coronary angioplasty implant and graft; J45.909 Unspecified asthma, uncomplicated; E03.9 Hypothyroidism, unspecified
CPT/HCPCS: 36415; 71045; 78452; 80053; 80061; 82948; 83036; 83735; 84100; 84439; 84443; 84484; 85025; 93005; 93017; 99285; A9502; G0378; J1650; J2785

== ENCOUNTER 2019-02-01 12:24 | Observation (INO) | payer MEDICARE, MEDICAID ==
[2019-02-01 12:29] VITALS: BMI 27.9
[2019-02-01 12:36] VITALS: TEMP 97.7
--- NOTE | 2019-02-01 13:25 | C.PDOC ---
History Of Present Illness 78 y/o female with a PMHx of CAD, HTN, HLD, and s/p stents, presents to the ED for evaluation of sharp left-sided chest pain since last night. Patient notes the pain lasted for a short period of time and resolved on its own. Currently she is pain free. Patient then saw her PMD Dr. Baig this morning, who referred patient to the ED for further eval. Patient reports she took her aspirin this morning. Denies any SOB, VALE, nausea, vomiting, fevers, cough, or diaphoresis. Time Seen by Provider: 02/01/19 12:54 Chief Complaint (Nursing): Chest Pain History Per: Patient History/Exam Limitations: no limitations Onset/Duration Of Symptoms: Hrs Current Symptoms Are (Timing): Gone Past Medical History Reviewed: Historical Data, Nursing Documentation, Vital Signs Vital Signs: Last Vital Signs Temp 97.7 F 02/01/19 12:31 Pulse 85 02/01/19 12:31 Resp 17 02/01/19 12:31 BP 136/72 02/01/19 12:53 Pulse Ox 99 02/01/19 12:31 - Medical History PMH: Asthma, CAD, Diabetes, HTN, Hypercholesterolemia, Hyperthyroidism, Hypothyroidism, Pneumonia Surgical History: Coronary Stent Denies: Pacemaker - [facility] Procedures BATHING/SHOWERING TECHNIQUES TREATMENT (12/16/17) DRESSING TECHNIQUES TREATMENT (12/16/17) GAIT TRAINING/FUNCTIONAL AMBULATION TREATMENT (12/16/17) GROOMING/PERSONAL HYGIENE TREATMENT (12/16/17) INJECT/INFUSE ELECTROLYT (08/05/15) INJECT/INFUSE NEC (08/05/15) NEBULIZER THERAPY (02/27/15) THERAPEUTIC EXERCISE TREATMENT OF MUSCULOSK WHOLE (12/16/17) VITAL CAPACITY DETERMIN (02/27/15) Family History: States: Unknown Family Hx - Social History Hx Tobacco Use: No Hx Alcohol Use: No Hx Substance Use: No - Immunization History Hx Tetanus Toxoid Vaccination: No Hx Influenza Vaccination: Yes (01/2019) Hx Pneumococcal Vaccination: Yes Review Of Systems Except As Marked, All Systems Reviewed And Found Negative. Constitutional: Negative for: Fever, Chills, Sweats Eyes: Negative for: Vision Change ENT: Negative for: Nose Congestion Cardiovascular: Positive for: Chest Pain. Negative for: Palpitations Respiratory: Negative for: Cough, Shortness of Breath Gastrointestinal: Negative for: Nausea, Vomiting, Abdominal Pain Musculoskeletal: Negative for: Back Pain Skin: Negative for: Rash Neurological: Negative for: Weakness, Numbness, Change in Speech, Headache, Dizziness Physical Exam - Physical Exam Appears: Non-toxic, No Acute Distress Skin: Normal Color, Warm, No Rash Head: Atraumatic, Normacephalic Eye(s): bilateral: Normal Inspection, PERRL, EOMI Nose: Normal Oral Mucosa: Moist Neck: Normal ROM Chest: Symmetrical, No Deformity, No Tenderness Cardiovascular: Rhythm Regular, No Murmur Respiratory: Normal Breath Sounds, No Rales, No Rhonchi, No Wheezing Gastrointestinal/Abdominal: Soft, No Tenderness, No Distention, No Guarding Extremity: Bilateral: Atraumatic, Normal Color And Temperature, Normal ROM Neurological/Psych: Oriented x3, Normal Speech, Normal Cranial Nerves Gait: Steady ED Course And Treatment - Laboratory Results Result Diagrams: 02/01/19 13:38 02/01/19 14:07 ECG: Interpreted By Me ECG Rhythm: Sinus Bradycardia Interpretation Of ECG: No ST or T wave changes Rate From EC O2 Sat by Pulse Oximetry: 99 Pulse Ox Interpretation: Normal Medical Decision Making Medical Decision Making: Impression: Chest pain - ro acs- Initial Plan: - Blood work - UA - EKG - Chest x-ray - Reassess atypical cp, but h/o of cad. sent by pmd. accepted dr jimenez Disposition - Disposition Disposition: HOSPITALIZED Disposition Time: 14:00 Condition: STABLE - Clinical Impression Clinical Impression: Chest pain - Scribe Statement The provider has reviewed the documentation as recorded by the Cristy Garcia Provider Attestation: All medical record entries made by the Faniibcornelius were at my direction and personally dictated by me. I have reviewed the chart and agree that the record accurately reflects my personal performance of the history, physical exam, medical decision making, and the department course for this patient. I have also personally directed, reviewed, and agree with the discharge instructions and disposition. Decision To Admit - Pt Status Changed To: Hospital Disposition Of: Observation - . Bed Request Type: Telemetry Admitting Physician: Atilio Jimenez Patient Diagnosis: Chest pain
--- NOTE | 2019-02-01 13:36 | RAD ---
Date of service: 02/01/2019 PROCEDURE: CHEST RADIOGRAPH, 1 VIEW HISTORY: chest pain COMPARISON: 10/19/2018. FINDINGS: LUNGS: The lungs are well inflated and clear. PLEURA: No pneumothorax or pleural effusion. CARDIOVASCULAR: The heart is normal in size. No aortic atherosclerotic calcifications present. OSSEOUS STRUCTURES: Within normal limits for the patient's age. VISUALIZED UPPER ABDOMEN: Normal. OTHER FINDINGS: None. IMPRESSION: No active pulmonary disease.
[2019-02-01 13:44] LABS: BASO % 0.5 % (0.0-2.0); EOS # 0.2 K/uL (0.0-0.7); EOS % 3.7 % (0.0-4.0); LYMPH # 1.6 K/uL (1.0-4.3); MEAN CORPUSCULAR HEMOGLOBIN 33.6 pg (27.0-31.0); MEAN CORPUSCULAR HGB CONC 33.2 g/dL (33.0-37.0); MONO # 0.4 K/uL (0.0-0.8); MONO % 7.2 % (0.0-10.0); NEUT # 3.4 K/uL (1.8-7.0); NEUT % 60.6 % (50.0-75.0); NRBC % 0.1 % (0.0-2.0); RBC 3.87 Mil/uL (3.80-5.20); RED CELL DISTRIBUTION WIDTH 13.9 % (11.5-14.5); WHITE BLOOD COUNT 5.7 K/uL (4.8-10.8)
[2019-02-01 13:56] LABS: INR 1.1; PROTHROMBIN TIME 12.3 SECONDS (9.7-12.2)
[2019-02-01 14:32] LABS: SQUAMOUS EPITHIAL 13 /hpf (0-5); URINE BACTERIA RARE (<OCC); URINE BILIRUBIN NEGATIVE (NEGATIVE); URINE BLOOD NEGATIVE (NEGATIVE); URINE CLARITY Hazy (Clear); URINE COLOR Yellow (YELLOW); URINE GLUCOSE (UA) 3+ mg/dL (Normal); URINE LEUKOCYTE ESTERASE 1+ Leu/uL (Negative); URINE PROTEIN NEGATIVE (NEGATIVE); URINE UROBILINOGEN NORMAL mg/dL (0.2-1.0)
[2019-02-01 14:34] LABS: ALB/GLOB RATIO 1.5 (1.0-2.1); ALBUMIN 4.2 g/dL (3.5-5.0); ALT/SGPT 17 U/L (9-52); AST/SGOT 31 U/L (14-36); BLOOD UREA NITROGEN 11 mg/dL (7-17); CALCIUM 9.5 mg/dl (8.6-10.4); GFR NON-AFRICAN AMERICAN 43
--- NOTE | 2019-02-01 15:50 | CP.PCM.HP ---
"<Stephanie Rene - Last Filed: 02/01/19 18:06> History of Present Illness - History of Present Illness History of Present Illness: Ms. 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 Patient went to her PMD yesterday for the chest pain and was told to go to the ED the same day. Today she presents and states that l ast night when straining to have a bowel movement she had 5/10, non-radiating chest pressure that lasted for about 2 hours. This morning she had the same type of chest pressure that lasted only for about a minute. The pain had resolved by the time patient presented to the E.R. She denied any shortness of breath during the episodes but did have some palpitations. She also admits to lightheadedness upon standing up. ROS POSITIVES: Chest Pressure/Pain, Palpitations, Dizziness upon standing. POSITIVES: Fever, chills, Headache, Vision changes, SOB, nausea, vomiting, abdominal pain, changes in bowel habits, urinary symptoms. PMHx: CAD, HTN, DM, Hypercholesterolemia, hypothyroidism, asthma, previous CO (1979), previous CVA (1994), and cardiac catheterization with stent placement (05/2018 & 06/2018) PSHx: R breast cyst removal (2002), (1979), hemorrhoidectomy Meds: Clopedogrel 75mg daily, ASA 81 mg daily, Metoprolol Tartrate 25 BID, Ranexa 500mg BID, levothyroxine 125 mcg daily, Simvastatin 10mg HS, Losartan 50mg Daily, Januvia 50mg PO Daily, Allergies: NKDA Social: Denies tobacco, alcohol, drugs. Family Hx: father-CVA, at age 48; brother- at age 11, cardiomyopathy; mother-colon cancer Proxy: Son- Kendall Hernandez [phone] Code Status: Full Code PMD: Dr. Omega Baig; Cardio: Dr. Rincon Present on Admission - Present on Admission Any Indicators Present on Admission: No Review of Systems - Review of Systems All systems: reviewed and no additional remarkable complaints except (As per HPI) Review of Systems: As per HPI Past Patient History - Infectious Disease Hx of Infectious Diseases: None - Tetanus Immunizations Tetanus Immunization: Unknown - Past Social History Smoking Status: Never Smoked - CARDIAC Hx Hypercholesterolemia: Yes Hx Hypertension: Yes Hx Pacemaker: No - PULMONARY Hx Asthma: Yes Hx Pneumonia: Yes - NEUROLOGICAL Hx Paralysis: No - HEENT Hx HEENT Problems: No - RENAL Hx Dialysis: No - ENDOCRINE/METABOLIC Hx Hyperthyroidism: Yes Hx Hypothyroidism: Yes - HEMATOLOGICAL/ONCOLOGICAL Hx Blood Transfusions: No - INTEGUMENTARY Hx Dermatological Problems: Yes (SEE COMMENT) Other/Comment: bilateral leg edema +2 more to right than left - MUSCULOSKELETAL/RHEUMATOLOGICAL Hx Musculoskeletal Disorders: No - GASTROINTESTINAL Hx Gastrointestinal Disorders: No - GENITOURINARY/GYNECOLOGICAL Hx Genitourinary Disorders: No Hx Reproductive Disorders: No - PSYCHIATRIC Hx Substance Use: No - SURGICAL HISTORY Hx Coronary Stent: Yes - ANESTHESIA Hx Anesthesia Reactions: No Hx Malignant Hyperthermia: No Meds Allergies/Adverse Reactions: Allergies Allergy/AdvReac Type Severity Reaction Status Date / Time No Known Allergies Allergy Verified 02/01/19 12:28 Results - Vital Signs Recent Vital Signs: Last Vital Signs Temp 97.7 F 02/01/19 12:31 Pulse 55 L 02/01/19 14:46 Resp 8 L 02/01/19 14:46 BP 120/65 02/01/19 14:46 Pulse Ox 100 02/01/19 14:46 - Labs Result Diagrams: 02/01/19 13:38 02/01/19 14:07 Labs: Laboratory Results - last 24 hr 02/01/19 02/01/19 02/01/19 13:38 13:38 14:07 WBC 5.7 RBC 3.87 Hgb 13.0 Hct 39.1 MCV 101.0 H D MCH 33.6 H MCHC 33.2 RDW 13.9 Plt Count 242 MPV 8.0 Neut % (Auto) 60.6 Lymph % (Auto) 28.0 [place] % (Auto) 7.2 Eos % (Auto) 3.7 Baso % (Auto) 0.5 Neut # (Auto) 3.4 Lymph # (Auto) 1.6 [place] # (Auto) 0.4 Eos # (Auto) 0.2 Baso # (Auto) 0.0 PT 12.3 H INR 1.1 APTT 31 Sodium 137 Potassium 4.3 Chloride 103 Carbon Dioxide 25 Anion Gap 14 BUN 11 Creatinine 1.2 Est GFR ( Amer) 52 Est GFR (Non-Af Amer) 43 Random Glucose 169 H Calcium 9.5 Total Bilirubin 0.6 AST 31 ALT 17 Alkaline Phosphatase 73 Troponin I < 0.0120 Total Protein 6.9 Albumin 4.2 Globulin 2.7 Albumin/Globulin Ratio 1.5 Urine Color Urine Clarity Urine pH Ur Specific Carney Urine Protein Urine Glucose (UA) Urine Ketones Urine Blood Urine Nitrate Urine Bilirubin Urine Urobilinogen Ur Leukocyte Esterase Urine WBC (Auto) Urine RBC (Auto) Ur Squamous Epith Cells Urine Bacteria 02/01/19 14:20 WBC RBC Hgb Hct MCV MCH MCHC RDW Plt Count MPV Neut % (Auto) Lymph % (Auto) [place] % (Auto) Eos % (Auto) Baso % (Auto) Neut # (Auto) Lymph # (Auto) [place] # (Auto) Eos # (Auto) Baso # (Auto) PT INR APTT Sodium Potassium Chloride Carbon Dioxide Anion Gap BUN Creatinine Est GFR ( Amer) Est GFR (Non-Af Amer) Random Glucose Calcium Total Bilirubin AST ALT Alkaline Phosphatase Troponin I Total Protein Albumin Globulin Albumin/Globulin Ratio Urine Color Yellow Urine Clarity Hazy Urine pH 5.0 Ur Specific Carney 1.027 Urine Protein Negative Urine Glucose (UA) 3+ H Urine Ketones Negative Urine Blood Negative Urine Nitrate Negative Urine Bilirubin Negative Urine Urobilinogen Normal Ur Leukocyte Esterase 1+ H Urine WBC (Auto) 17 H Urine RBC (Auto) 3 Ur Squamous Epith Cells 13 H Urine Bacteria Rare Assessment & Plan - Assessment and Plan (Free Text) Assessment: 78 year old female with a PMHx of CAD, HTN, DM, Hypercholesterolemia, hypothyroidism, asthma, previous CO (1979), 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 mild-moderate TR/Pulm HTn, Mild MR. -ASA 81mg, Plavix 75mg -Continue Ranexa 500mg BID -Cardiology Consulted (Dr. Rincon), Recs Appreciated. HTN -Metoprolol Tartrate 25mg BID -Losartan 50mg daily (Held), Patient states this medication was stopped by primary. On ECW it says stopped but also says to continue the medication on a later progress note. Pharmacy may need to be called. DM -Cont. Home Meds: Januvia 50mg po BID -Start ISS if patient stays for more than 24 hours. Hypercholesterolemia -Crestor 5 PO HS -Lipid panel Hx CAD with cardiac stent -Continue home med Plavix 75mg daily and ASA 81mg Daily Hypothyroidism -Levothyroxine 125 mcg daily -TSH Elevated, F/U Free T4 Prophylaxis Lovenox 30 Patient seen, examined, and discussed with Attending (Dr. Madrigal) Stephanie Rene, PGY-2 <Atilio Madrigal - Last Filed: 02/02/19 08:16> Results - Vital Signs Recent Vital Signs: Last Vital Signs Temp 97.7 F 02/01/19 12:31 Pulse 73 02/01/19 19:34 Resp 16 02/01/19 19:34 BP 167/77 H 02/01/19 19:34 Pulse Ox 98 02/01/19 19:34 - Labs Result Diagrams: 02/01/19 13:38 02/01/19 14:07 Labs: Laboratory Results - last 24 hr 02/01/19 02/01/19 02/01/19 13:38 13:38 14:07 WBC 5.7 RBC 3.87 Hgb 13.0 Hct 39.1 MCV 101.0 H D MCH 33.6 H MCHC 33.2 RDW 13.9 Plt Count 242 MPV 8.0 Neut % (Auto) 60.6 Lymph % (Auto) 28.0 [place] % (Auto) 7.2 Eos % (Auto) 3.7 Baso % (Auto) 0.5 Neut # (Auto) 3.4 Lymph # (Auto) 1.6 [place] # (Auto) 0.4 Eos # (Auto) 0.2 Baso # (Auto) 0.0 PT 12.3 H INR 1.1 APTT 31 Sodium 137 Potassium 4.3 Chloride 103 Carbon Dioxide 25 Anion Gap 14 BUN 11 Creatinine 1.2 Est GFR ( Amer) 52 Est GFR (Non-Af Amer) 43 Random Glucose 169 H Calcium 9.5 Phosphorus Magnesium Total Bilirubin 0.6 AST 31 ALT 17 Alkaline Phosphatase 73 Troponin I < 0.0120 Total Protein 6.9 Albumin 4.2 Globulin 2.7 Albumin/Globulin Ratio 1.5 TSH 3rd Generation Urine Color Urine Clarity Urine pH Ur Specific Carney Urine Protein Urine Glucose (UA) Urine Ketones Urine Blood Urine Nitrate Urine Bilirubin Urine Urobilinogen Ur Leukocyte Esterase Urine WBC (Auto) Urine RBC (Auto) Ur Squamous Epith Cells Urine Bacteria 02/01/19 02/01/19 14:20 16:00 WBC RBC Hgb Hct MCV MCH MCHC RDW Plt Count MPV Neut % (Auto) Lymph % (Auto) [place] % (Auto) Eos % (Auto) Baso % (Auto) Neut # (Auto) Lymph # (Auto) [place] # (Auto) Eos # (Auto) Baso # (Auto) PT INR APTT Sodium Potassium Chloride Carbon Dioxide Anion Gap BUN Creatinine Est GFR ( Amer) Est GFR (Non-Af Amer) Random Glucose Calcium Phosphorus 3.3 Magnesium 2.1 Total Bilirubin AST ALT Alkaline Phosphatase Troponin I Total Protein Albumin Globulin Albumin/Globulin Ratio TSH 3rd Generation 22.30 H Urine Color Yellow Urine Clarity Hazy Urine pH 5.0 Ur Specific [place] 1.027 Urine Protein Negative Urine Glucose (UA) 3+ H Urine Ketones Negative Urine Blood Negative Urine Nitrate Negative Urine Bilirubin Negative Urine Urobilinogen Normal Ur Leukocyte Esterase 1+ H Urine WBC (Auto) 17 H Urine RBC (Auto) 3 Ur Squamous Epith Cells 13 H Urine Bacteria Rare Attending/Attestation - Attestation I have personally seen and examined this patient.: Yes I have fully participated in the care of the patient.: Yes I have reviewed all pertinent clinical information: Yes Notes (Text): Medical attending: Patient was seen and examined by me. Agree with the above note by the resident The patient was not in any acute pain or distress when we came and saw She does have a history of CAD and not very long ago had stenting to the LAD and proximal. The patient earlier had chest pain but now resolved Will need cardiology evaluation Also cardiac enzymes ordered Q6hrs, will need repeat EKGs as well thank you Atilio Madrigal"
[2019-02-01] MEDS ORDERED: Ranolazine 500 mg Extended Release Tablets PO SCH (18:45)
[2019-02-01] MEDS ORDERED: Albuterol-Ipratrop 3 mg / 0.5 (3 ml) UD INH PRN (18:52)
[2019-02-01 19:35] VITALS: BP 167/77; PULSE 73; RESP 16; O2SAT 98
[2019-02-01] MEDS ORDERED: Rosuvastatin Calcium 2.5 mg Tab PO SCH (22:00)
[2019-02-02] MEDS ORDERED: Levothyroxine 125 MCG TAB PO SCH (10:00)
[2019-02-02] MEDS ORDERED: Enoxaparin 30 mg Syringe SC SCH (10:00)
--- NOTE | 2019-02-05 21:53 | CARD ---
APPROVED REPORT Date of service: 02/01/2019 EKG Measurement Heart [id number] ID [id number] <Conclusion> Sinus bradycardia with sinus arrhythmia Otherwise normal ECG
== END 2019-02-01 19:30 | disposition left against medical advice (07) ==
LOC: C.ER 12:24 → C.9E 15:00
PROVIDERS: ADMIT Hospitalist; ATTEND Hospitalist
DX: R07.9 Chest pain, unspecified (principal); J45.909 Unspecified asthma, uncomplicated; I25.10 Atherosclerotic heart disease of native coronary artery without angina pectoris; E03.9 Hypothyroidism, unspecified; Z95.5 Presence of coronary angioplasty implant and graft; E11.9 Type 2 diabetes mellitus without complications; I69.354 Hemiplegia and hemiparesis following cerebral infarction affecting left non-dominant side; E78.00 Pure hypercholesterolemia, unspecified; I10 Essential (primary) hypertension
CPT/HCPCS: 71045; 80053; 81001; 83735; 84100; 84443; 84484; 85025; 85610; 85730; 93005; 99284; G0378